=== PATIENT | male | born 1975 | race Caucasian/White ===

== ENCOUNTER 2020-11-21 10:18 | Inpatient (IN) ==
[2020-11-21] MEDS ORDERED: *HR* Rocuronium Bromide 50 MG/5 ML VIAL ONE ×2 (10:37→13:18)
[2020-11-21] MEDS ORDERED: *HR* Midazolam HCl 2 MG/2 ML VIAL ONE (10:37)
[2020-11-21] MEDS ORDERED: *HR* FentaNYL (PF) 100 MCG/2 ML VIAL ONE ×2 (10:37→17:11)
[2020-11-21] MEDS ORDERED: Lidocaine -MPF 2% 2 ML VIAL ONE ×2 (10:37→11:10)
[2020-11-21] MEDS ORDERED: *HR* Propofol 200 MG/20 ML VIAL IVP ONE (10:37)
[2020-11-21] MEDS ORDERED: *HR* Succinylcholine 200 MG/10 ML VIAL IVP ONE (10:37)
[2020-11-21] MEDS ORDERED: Acetaminophen IV 1,000 MG/100 ML BAG IVPB ONE ×3 (10:38→17:55)
[2020-11-21] MEDS ORDERED: Famotidine 20 MG/2 ML VIAL IVP ONE (10:38)
[2020-11-21] MEDS ORDERED: Gabapentin 300 MG CAPSULE PO ONE (10:38)
[2020-11-21] MEDS ORDERED: Ketorolac 15 MG/ML VIAL IVP PRN (10:39)
[2020-11-21] MEDS ORDERED: *HR* OxyCODONE Immed Rel 5 MG TABLET PO PRN (10:39)
[2020-11-21] MEDS ORDERED: Albuterol 2.5 MG/3 ML NEBULIZER IH PRN (10:39)
[2020-11-21] MEDS ORDERED: Ondansetron 4 MG/2 ML VIAL IVP PRN ×2 (10:39→20:26)
[2020-11-21] MEDS ORDERED: Albuterol 2.5 MG/3 ML NEBULIZER IH ONE (10:40)
[2020-11-21] MEDS ORDERED: Ringers Solution, Lactated 1,000 ML IVC SCH (10:45)
[2020-11-21] MEDS ORDERED: CeFAZolin Syr 2,000MG/20 ML 2,000 MG/20 ML SYRINGE IVPB ONE (11:38)
[2020-11-21] MEDS ORDERED: Sugammadex Sodium 200 MG/2 ML VIAL IV ONE (13:04)
[2020-11-21] MEDS ORDERED: Ketorolac 30 MG/ML VIAL ONE (13:35)
[2020-11-21] MEDS: *HR* HYDROmorphone PF 0.5 MG/0.5 ML SYRINGE IVP PRN ×4 (14:08→14:50)
[2020-11-21] MEDS ORDERED: *HR* FentaNYL (PF) 100 MCG/2 ML VIAL IVP ONE (17:13)
[2020-11-21] MEDS ORDERED: Naloxone 0.4 MG/ML INJ IVP PRN (20:26)
[2020-11-21] MEDS ORDERED: *HR* FentaNYL PATCH 25 MCG PATCH TD SCH (21:00)
[2020-11-21] MEDS: Famotidine 20 MG TABLET PO SCH (21:04)
[2020-11-21] MEDS: Gabapentin 400 MG CAPSULE PO SCH (21:04)
[2020-11-21] MEDS: Ketorolac 15 MG/ML VIAL IVP SCH (21:06)
[2020-11-21] MEDS: *HR* Heparin 5,000 UNIT/ML VIAL SQ SCH (21:06)
[2020-11-21] MEDS: 0.9 % Sodium Chloride 1,000 ML IVC SCH (21:29)
[2020-11-21] MEDS: (Buprenorphine Hcl/Naloxone Hcl 8MG/2MG) SL SCH (22:04)
[2020-11-22] MEDS: *HR* OxyCODONE Immed Rel 5 MG TABLET PO PRN ×4 (00:35→18:28)
[2020-11-22] MEDS: Ketorolac 15 MG/ML VIAL IVP SCH ×4 (02:17→20:17)
[2020-11-22] MEDS: hydrOXYzine pamoate 25 MG CAPSULE PO PRN ×2 (03:56→11:55)
[2020-11-22 05:27] LABS: Hematocrit 40.1 % (37.5-50.1); Hemoglobin 13.5 g/dL (12.9-16.9); Mean Corpuscular HGB Conc 33.7 g/dL (31.6-35.5); Mean Corpuscular Hemoglobin 31.1 pg (28.0-33.3); Mean Corpuscular Volume 92.4 fL (83.0-100.0); Mean Platelet Volume 8.9 fL (9.4-12.4); Platelet Count 358 K/mcL (140-400); Red Blood Count 4.34 M/mcL (4.19-5.50); Red Cell Distribution Width 13.4 % (11.5-14.5); White Blood Count 16.5 K/mcL (4.3-11.1)
[2020-11-22 05:46] LABS: BUN/Creatinine Ratio 11 (6-26); Blood Urea Nitrogen 8 mg/dL (6-20); Calcium 8.9 mg/dL (8.6-10.3); Carbon Dioxide 23 mEq/L (23-29); Chloride 99 mEq/L (98-107); Glucose 119 mg/dL (70-105); Magnesium 1.6 mg/dL (1.6-2.6); Osmolality,Calculated 271 (280-300); Sodium 131 mEq/L (136-145); eGFR For African Americans > 60 (> 60); eGFR For Non-African Americans > 60 (> 60)
[2020-11-22] MEDS: Gabapentin 400 MG CAPSULE PO SCH ×3 (06:30→20:17)
[2020-11-22] MEDS: *HR* Heparin 5,000 UNIT/ML VIAL SQ SCH ×4 (06:31→22:23)
[2020-11-22] MEDS: Budesonide/Formoterol 80/4.5 1 PUFF INH IH SCH (07:13)
[2020-11-22] MEDS: Famotidine 20 MG TABLET PO SCH ×2 (08:41→20:17)
[2020-11-22] MEDS: 0.9 % Sodium Chloride 1,000 ML IVC SCH (08:49)
[2020-11-22] MEDS: *HR* Buprenorphine HCl 8 MG TAB.SUBL SL SCH (20:17)
[2020-11-23] MEDS: *HR* OxyCODONE Immed Rel 5 MG TABLET PO PRN ×4 (01:02→23:24)
[2020-11-23] MEDS: Ketorolac 15 MG/ML VIAL IVP SCH ×4 (02:57→19:59)
[2020-11-23] MEDS: *HR* Heparin 5,000 UNIT/ML VIAL SQ SCH ×4 (05:45→20:00)
[2020-11-23] MEDS: Gabapentin 400 MG CAPSULE PO SCH ×3 (05:46→19:58)
[2020-11-23] MEDS: *HR* Buprenorphine HCl 8 MG TAB.SUBL SL SCH ×2 (08:15→19:58)
[2020-11-23] MEDS: Famotidine 20 MG TABLET PO SCH ×2 (08:15→19:58)
[2020-11-23] MEDS: Budesonide/Formoterol 80/4.5 1 PUFF INH IH SCH (08:23)
[2020-11-24] MEDS: *HR* Heparin 5,000 UNIT/ML VIAL SQ SCH ×3 (01:26→20:23)
[2020-11-24] MEDS: Ketorolac 15 MG/ML VIAL IVP SCH ×4 (01:31→20:22)
[2020-11-24] MEDS: (Buprenorphine Hcl/Naloxone Hcl 8MG/2MG) SL SCH (01:34)
[2020-11-24 03:44] LABS: Basophils % 0.3 %; Eosinophils # 0.2 K/mcL (0.0-0.6); Eosinophils % 1.9 %; Hematocrit 38.6 % (37.5-50.1); Hemoglobin 12.8 g/dL (12.9-16.9); Immature Granulocytes % 0.3 % (0-4); Lymphocytes # 2.5 K/mcL (0.6-4.6); Mean Corpuscular HGB Conc 33.2 g/dL (31.6-35.5); Mean Corpuscular Hemoglobin 31.1 pg (28.0-33.3); Mean Corpuscular Volume 93.9 fL (83.0-100.0); Mean Platelet Volume 9.2 fL (9.4-12.4); Monocytes # 1.4 K/mcL (0.0-1.3); Monocytes % 11.8 %; Neutrophils # 7.5 K/mcL (1.6-8.9); Platelet Count 316 K/mcL (140-400); Red Blood Count 4.11 M/mcL (4.19-5.50); Red Cell Distribution Width 13.9 % (11.5-14.5); Segmented Neutrophils % 64.7 %; White Blood Count 11.7 K/mcL (4.3-11.1)
[2020-11-24 04:01] LABS: BUN/Creatinine Ratio 18 (6-26); Blood Urea Nitrogen 14 mg/dL (6-20); Calcium 8.6 mg/dL (8.6-10.3); Carbon Dioxide 24 mEq/L (23-29); Chloride 106 mEq/L (98-107); Glucose 94 mg/dL (70-105); Magnesium 1.9 mg/dL (1.6-2.6); Osmolality,Calculated 282 (280-300); Potassium 4.4 mEq/L (3.5-5.1); Sodium 136 mEq/L (136-145); eGFR For African Americans > 60 (> 60); eGFR For Non-African Americans > 60 (> 60)
[2020-11-24] MEDS: *HR* OxyCODONE Immed Rel 5 MG TABLET PO PRN ×4 (05:36→23:41)
[2020-11-24] MEDS: Gabapentin 400 MG CAPSULE PO SCH ×3 (05:36→20:22)
[2020-11-24] MEDS: Famotidine 20 MG TABLET PO SCH ×2 (07:57→20:22)
[2020-11-24] MEDS: *HR* Buprenorphine HCl 8 MG TAB.SUBL SL SCH ×2 (07:57→20:22)
[2020-11-24] MEDS: Budesonide/Formoterol 80/4.5 1 PUFF INH IH SCH (08:39)
[2020-11-25] MEDS: Ketorolac 15 MG/ML VIAL IVP SCH ×3 (03:00→13:31)
[2020-11-25] MEDS: *HR* Heparin 5,000 UNIT/ML VIAL SQ SCH ×2 (05:37→13:31)
[2020-11-25] MEDS: Gabapentin 400 MG CAPSULE PO SCH ×2 (05:37→13:30)
[2020-11-25] MEDS: *HR* OxyCODONE Immed Rel 5 MG TABLET PO PRN ×2 (05:41→18:57)
[2020-11-25 07:52] VITALS: O2SAT 98
[2020-11-25] MEDS ORDERED: *HR* FentaNYL PATCH 25 MCG PATCH TD SCH (09:00)
[2020-11-25] MEDS: *HR* Buprenorphine HCl 8 MG TAB.SUBL SL SCH (09:18)
[2020-11-25] MEDS: Famotidine 20 MG TABLET PO SCH (09:18)
[2020-11-25] MEDS: Budesonide/Formoterol 80/4.5 1 PUFF INH IH SCH (10:44)
[2020-11-25 16:06] VITALS: BP 126/65; PULSE 62; TEMP 98.2
== END 2020-11-25 19:14 | disposition home or self-care (01) | DRG 164 ==
LOC: SAMDAY 10:18 → 2NNU 20:18 → 2ANU 11-25 14:46
PROVIDERS: ADMIT Thoracic Surgery (Cardiothoracic Vascular Surgery); ATTEND Thoracic Surgery (Cardiothoracic Vascular Surgery)